=== PATIENT | male | born 1965 | race Caucasian/White ===

== ENCOUNTER → 2017-11-29 09:36 | Outpatient (CLI) | payer OTHER, SELFPAY ==
--- NOTE | 2017-11-29 09:43 | CT_ITS ---
STUDY: CTA CHEST REASON FOR EXAM: Male, 52 years old. Shortness of breath. History of recent travel. RADIATION DOSAGE (If Supplied By Facility): CTDIvol = ( 30.02 ) mGy, DLP = ( 704.66 ) mGycm TECHNIQUE: The examination was performed with the intravenous administration of 100ML ml of Isovue 370 contrast material. Post-processing of the angiographic images was performed, with multiplanar reformation and 3D reconstruction. Individualized dose optimization techniques were used for this CT. COMPARISON: None. FINDINGS: Normal enhancement of the main pulmonary artery and right and left pulmonary arteries. Normal enhancement of the bilateral peripheral pulmonary arteries. There is no demonstrated pulmonary embolism. Normal thoracic aorta and visualized great vessels. There is no demonstrated aortic dissection. There are calcifications of the coronary arteries. Calcification of the LAD. There are visualized mediastinal lymph nodes, which are within normal size limits, and with normal morphology. Normal hilar regions. Normal visualized trachea and bronchi. The lungs are well expanded. Mild increased linear markings in the anterior superior aspect of the right upper lobe suggestive of underlying atelectasis and/or scarring. Follow-up is recommended. Normal pleura. Normal chest wall structures. There are degenerative changes of thoracic spine. Normal visualized upper abdomen. CT/CTA Chest W/WO Contrast IMPRESSION: Focal increased linear density in the anterior segment of the left upper lobe suggestive of focal scarring. Radiographic follow-up is recommended. Coronary artery calcification. Electronically Signed: Kurt Parra MD at 11:07 EDT Tel [phone], Service support ,
== END ==
PROVIDERS: Family Provider Internal Medicine; PCP Internal Medicine; Visit Provider Internal Medicine
DX: R06.02 Shortness of breath (principal)
CPT/HCPCS: 71275; Q9967

== ENCOUNTER → 2018-06-02 07:48 | Outpatient (CLI) | payer OTHER, SELFPAY ==
--- NOTE | 2018-06-02 07:53 | RDU_ITS ---
Reason For Study: HYPERTENSION Right Renal Artery Left Renal Artery Right renal artery ostium Left renal artery ostium 107.0/26.3 114.0/38.3 RSV/EDV. PSV/EDV. Right renal artery proximal Left renal artery proximal PSV/EDV 113.0/35.6 PSV/EDV. 113.0/29.5 . Right renal artery mid 111.0/32.7 Left renal artery mid 120.0/43.8 PSV/EDV. PSV/EDV . Right renal artery distal Left renal artery distal 105.0/26.4 114.0/33.2 PSV/EDV. PSV/EDV. Right RAR 2.1. Left RAR 2.2. Right Renal Parenchyma Left Renal Parenchyma Upper Pole Medula 25.6/9.6 PSV/EDV. Left upper pole medulla 30.9/12.2 Right upper pole medulla EDR .38 . PSV/EDV . Right upper pole medulla R.I. .62 . Left upper pole medulla EDR .40 . Upper Pete Cortx 18.0/7.2 PSV/EDV. Left upper pole medulla R.I. .60 . Right upper pole cortex EDR .4 . UP Cortex 16.8/7.0 PSV/EDV. Right upper pole cortex R.I. .60 . Left upper pole cortex EDR .42 . Right lower Pole medulla 27.2/10.2 Left upper pole cortex R.I. .58 . PSV/EDV . Left lower Pole medulla 18.0/7.6 Right lower pole medulla EDR .38 . PSV/EDV . Right lower pole medulla R.I. .63 . Left lower pole medulla EDR .42 . Lower Pole Cortex 16.1/6.1 PSV/EDV. Left lower pole medulla R.I. .58 . Right lower pole cortex EDR .38 . Lower Pole Cortx 16.2/6.7 PSV/EDV. Right lower pole cortex R.I. .62 . Left lower pole cortex EDR .41 . Right Renal Hilar Left lower pole cortex R.I. .58 . Right Hilar avg 45.6/14.1 PSV/EDV. Left Renal Hilar Right hilar acceleration time 59 LT Hilar avg 37.3/11.0 PSV/EDV . m/sec. Left hilar acceleration time 44 Right Renal Dimensions m/sec. Right kidney size 11.8 cm . Left Renal Dimensions Right cortical dimension 1.7 cm . Left kidney size 12.4 cm . Left cortical dimension 1.7 cm . Aorta Difficult exam due to body habitus. Midline view not obtained. Aorta mid/distal not visualized. Proximal abdominal aorta peak systolic velocity is 54.1 cm/sec . Interpretation Summary Renal artery velocities are bilaterally normal. Acceleration times are normal bilaterally. Renal- aortic ratios are also bilaterally normal. There is no evidence of hemodynamically significant renal artery stenosis on either side. Renovascular resistance appears to be bilaterally normal . The right cortical dimension is increased. The left cortical dimension is increased. Kidneys appear normal in size bilaterally. Ordering Physician: Lizzy Gold Referring Physician: Lizzy Gold Performed By: Zelda Santiago RVT
== END ==
LOC: CT 07:50 → VL 07:53
PROVIDERS: Family Provider Internal Medicine; PCP Internal Medicine; Referring Provider Internal Medicine; Visit Provider Internal Medicine
DX: I10 Essential (primary) hypertension (principal)
CPT/HCPCS: 93975

== ENCOUNTER → 2018-06-10 07:35 | Outpatient (CLI) | payer OTHER, SELFPAY ==
--- NOTE | 2018-06-10 07:39 | CT_ITS ---
STUDY: CT CHEST WITHOUT CONTRAST REASON FOR EXAM: Male, 52 years old. Follow-up lung nodule. Smoker. RADIATION DOSAGE (If Supplied By Facility): CTDIvol = ( 20.72 ) mGy, DLP = ( 648.92 ) mGycm TECHNIQUE: Transaxial imaging was performed without the administration of intravenous contrast material. Multiplanar coronal and sagittal images were reformatted. Individualized dose optimization techniques were used for this CT. COMPARISON: CTA of the chest, November 29, 2017. FINDINGS: The lungs are well expanded. There is linear scarring with associated focal soft tissue density in the anterior right upper lobe best seen on image is 41 through 58. This is stable and unchanged. There is a 0.9 x 0.6 x 0.5 cm soft tissue nodule in the left upper lobe best seen on image 93. This is also stable. No other mass or infiltrate is seen within the lungs. There is no demonstrated pleural abnormality. Normal heart and pericardium. There are calcifications of the coronary arteries. Multiple small subcentimeter mediastinal lymph nodes, again stable. Normal hilar regions. Normal unenhanced pulmonary arteries. Normal aorta arch and descending thoracic aorta. Stable minimal degenerative changes of the thoracic spine. There is no demonstrated abnormality of the visualized upper abdomen. CT/Chest without Contrast IMPRESSION: No change in findings when compared to November 29, 2017. Electronically Signed: Rusty Monk DO at 17:40 EDT Tel [phone], Service support ,
== END ==
PROVIDERS: Family Provider Internal Medicine; PCP Internal Medicine; Referring Provider Internal Medicine Pulmonary Disease; Visit Provider Internal Medicine Pulmonary Disease
DX: R91.1 Solitary pulmonary nodule (principal)
CPT/HCPCS: 71250

== ENCOUNTER → 2020-05-17 | Outpatient (CLI) | payer OTHER, SELFPAY ==
--- NOTE | 2020-05-17 08:30 | RAD_ITS ---
PROCEDURE: Fluoroscopic guided right shoulder Injection DATE: 05/17/2020 INDICATION: Male, 54 years old. Chronic shoulder pain. PHYSICIAN: Kurt Parra M.D. MEDICATIONS: 12 mg of BETAMETHASONE and 4 cc of 1% LIDOCAINE. 2% lidocaine administered subcutaneously for local anesthesia. ACCESS SITE: Right shoulder. NEEDLE: 22-gauge spinal needle. FLUOROSCOPY TIME (if supplied): (0:42) minutes/seconds FINDINGS: The risks, benefits, and alternatives to the procedure were explained to the patient. The specific risks of bleeding, infection, and neurovascular injury were detailed and accepted. Witnessed informed consent was obtained. A 22-gauge spinal needle was positioned under radiographic fluoroscopic localization. Approximately 2 cc of ISOVUE 300 instilled for localization purposes. Medication was then injected. The patient tolerated the procedure well without any immediate complications. RAD/Inj/Asp Vik Jt Should/Hip/Knee IMPRESSION: 1. Successful fluoroscopic guided right shoulder injection. Electronically Signed: Kurt Parra, at 9:51 EDT , Service support ,
--- NOTE | 2020-05-17 08:40 | RAD_ITS ---
PROCEDURE: Fluoroscopic guided left shoulder Injection DATE: 05/17/2020. INDICATION: Male, 54 years old. Chronic left shoulder pain. PHYSICIAN: Kurt Parra M.D. MEDICATIONS: 12 mg of BETAMETHASONE and 4 cc of 1% LIDOCAINE. 2% lidocaine administered subcutaneously for local anesthesia. ACCESS SITE: Left shoulder. NEEDLE: 22-gauge spinal needle. FLUOROSCOPY TIME (if supplied): (0:43) minutes/seconds. One image was obtained. FINDINGS: The risks, benefits, and alternatives to the procedure were explained to the patient. The specific risks of bleeding, infection, and neurovascular injury were detailed and accepted. Witnessed informed consent was obtained. A 22-gauge spinal needle was positioned under radiographic fluoroscopic localization. Approximately 2 cc of ISOVUE-300 instilled for localization purposes. Medication was then injected. The patient tolerated the procedure well without any immediate complications. RAD/Inj/Asp Vik Jt Should/Hip/Knee IMPRESSION: 1. Successful fluoroscopic guided left shoulder injection. Electronically Signed: Kurt Parra, at 9:50 EDT , Service support ,
== END | disposition home or self-care (01) ==
LOC: RAD 08:03
PROVIDERS: PCP Internal Medicine; Referring Provider Specialist; Visit Provider Specialist
DX: M19.011 Primary osteoarthritis, right shoulder (principal)
CPT/HCPCS: 20610; 77002; Q9967; J0702

== ENCOUNTER → 2020-07-27 16:36 | Outpatient (CLI) | payer OTHER, SELFPAY ==
--- NOTE | 2020-07-27 16:45 | RAD_ITS ---
STUDY: X-RAY - LUMBAR SPINE REASON FOR EXAM: Male, 54 years old. BACK PAIN FOR YEARS THAT RADIATES TO LEFT HIP. TECHNIQUE: 3 view(s) of the lumbar spine were obtained. COMPARISON: None FINDINGS: Normal lumbar lordosis. There is no substantial scoliosis. There is a normal alignment of the vertebrae. There is multilevel endplate spondylosis of the lumbar vertebrae. There is multi-level degenerative disc disease with multi-level disc space narrowing. The soft tissue structures are unremarkable. RAD/Lumbar Spine 2 or 3 Views IMPRESSION: Degenerative changes of the spine, as detailed above. Electronically Signed: Deja Norwood, at 3:10 EST Tel , Service support ,
== END ==
PROVIDERS: PCP Internal Medicine; Referring Provider Anesthesiology Pain Medicine; Visit Provider Anesthesiology Pain Medicine
DX: M54.5 Low back pain (principal)
CPT/HCPCS: 72100

== ENCOUNTER → 2021-05-29 17:41 | Outpatient (CLI) | payer OTHER, SELFPAY ==
--- NOTE | 2021-05-29 17:58 | CT_ITS ---
STUDY: LOW DOSE CT LUNG CANCER SCREENING REASON FOR EXAM: Male, 55 years old. SMOKER RADIATION DOSAGE (If Supplied By Facility): CTDIvol = ( 3.18 ) mGy, DLP = ( 115.57 ) mGycm TECHNIQUE: No contrast was administered. Low dose technique was utilized (average mAS-38 and kVp 120). 1.25 mm axial source images with a slice interval of 1.25-mm were reconstructed in lung windows. 2.5 mm axial source images with a slice interval of 2.5-mm were reconstructed in lung windows. 5.0 mm axial source images with a slice interval of 5.0-mm were reconstructed in soft tissue windows. Nodule measured using lung windows on PACS and/or independent workstation with automated measurement of minimum and maximum diameter. Nodule measurement reported as average diameter rounded to the nearest whole number. Growth is defined as an increase ins size of greater than 1.5 mm. COMPARISON: None. NODULES: Reticulonodular density of the anterior right upper lobe on image 67 of series 2 is stable. Round, smoothly marginated nodule in the anterior left upper lobe measuring 9 mm on image 110 of series 2 and image 55 of series 602 is new since the prior CT. Adjacent vascular structures are noted. Emphysema: Not present Endobronchial lesion: None Aorta: Normal caliber Coronary arteries: Moderate atherosclerosis. Heart: Normal size Pulmonary artery: Unremarkable for unopacified technique. Mediastinal nodes: No significant adenopathy. Other chest and abdominal findings: None CT/Low Dose CT Lung Screening IMPRESSION: ACR Lung CT Screening Reporting T Data System (Lung-RADS) score: 4B - Very Suspicious. New 9 mm noncalcified nodule in the anterior left upper lobe. Recommend chest CT with contrast, PET/CT and/or tissue sampling depending on the probability of malignancy and comorbidities. PET/CT may be used when there is a >=8 mm solid component. For new large nodules that develop on an annual repeat screening CT, a 1 month LDCT may be recommended to address potentially infectious or inflammatory conditions. IMPORTANT NOTES FOR USE: ACR Lung-RADS Version 1.1 Assessment Categories Release Date: 2018 Category: Coded 0-4 bases on nodule(s) with highest degree of suspicion. Negative screen is defined as categories 1 and 2; a positive screen is defined as categories 3 and 4. Category 3 and 4A nodules that are unchanged on interval CT should be coded as category 2, and individuals returned to screening in 12 months. Category 4X: Category 3 or 4 nodules with additional imaging findings that increase the suspicion of lung cancer, such as spiculation, GGN that doubles in size in 1 year, enlarged lymph notes, etc. Category Modifiers: S (significant finding unrelated to lung cancer) Electronically Signed: Mason Samson MD ([place]) at 8:25 EDT , Service support ,
== END ==
PROVIDERS: PCP Internal Medicine; Visit Provider Internal Medicine
DX: Z12.2 Encounter for screening for malignant neoplasm of respiratory organs (principal); F17.200 Nicotine dependence, unspecified, uncomplicated
CPT/HCPCS: 71271

== ENCOUNTER → 2021-06-07 17:32 | Outpatient (CLI) | payer OTHER, SELFPAY ==
--- NOTE | 2021-06-07 17:37 | CT_ITS ---
STUDY: CT CHEST WITH CONTRAST REASON FOR EXAM: Male, 55 years old. NEW LUNG NODULE. Shortness of breath with exertion. RADIATION DOSAGE (If Supplied By Facility): CTDIvol = ( 18.39 ) mGy, DLP = ( 733.32 ) mGycm TECHNIQUE: Transaxial imaging was performed following intravenous administration of IV 100mL Isovue-370. Multiplanar coronal and sagittal images were reformatted. Individualized dose optimization techniques were used for this CT. COMPARISON: Comparison is made with prior study 05/29/2021. FINDINGS: Stable reticular nodular density in the anterior aspect of the right upper lobe medially as seen on axial image #28. This is unchanged. Stable 9 mm well-defined nodule in the anterior aspect of the left upper lobe as seen on axial image #52. There is no demonstrated pleural abnormality. There are calcifications of the coronary arteries. There are multiple small lymph nodes within the mediastinum, which are normal in size and morphology most compatible with reactive lymph hyperplasia. Normal hilar regions. Normal enhanced pulmonary arteries. Normal aorta arch and descending thoracic aorta. There are multi-level degenerative changes of the thoracic spine. Diffuse fatty infiltration of the liver. CT/Chest WITH Contrast IMPRESSION: Stable examination. Electronically Signed: Kurt Parra MD at 8:40 EDT , Service support ,
[2021-06-07 17:45] LABS: CREATININE FINGERSTICK 1.1 mg/dL (0.70-1.30); EGFR FINGERSTICK > 60.0000 mL/min (>60)
== END ==
PROVIDERS: PCP Internal Medicine; Referring Provider Internal Medicine; Visit Provider Internal Medicine
DX: R93.89 Abnormal findings on diagnostic imaging of other specified body structures (principal)
CPT/HCPCS: 71260; Q9967

== ENCOUNTER → 2021-08-16 06:37 | Outpatient (CLI) | payer OTHER, SELFPAY ==
--- NOTE | 2021-08-16 06:43 | MRI_ITS ---
STUDY: MRI LEFT SHOULDER REASON FOR EXAM: Left shoulder pain, weakness and limited range of motion, no specific injury. TECHNIQUE: Standardized fat and water weighted pulse sequences were obtained in all 3 orthogonal planes. COMPARISON: None. FINDINGS: There is supraspinatus and infraspinatus tendinosis (T2 coronal images 8-12) without discrete tendon tear. There is subscapularis tendinosis (proton-density axial image 13, 14) without discrete tendon tear. Normal teres minor tendon. Normal supraspinatus muscle. There is mild atrophy with mild partial fat replacement of the distal infraspinatus muscle (T2 axial images 6, 7). Normal subscapularis muscle. There is atrophy with fat replacement of the teres minor muscle (T2 sagittal images 1-9). There is glenohumeral arthrosis with marginal osteophytes and humeral head, mild subchondral cystic change of the posterior medial humeral head and chondral thinning (T2 coronal images 9-11). Normal humeral head and visualized proximal humerus. Normal intracapsular long biceps tendon. There is fluid in the bicipital tendon sheath (proton-density axial images 14-18) suggestive of mild bicipital tenosynovitis. There is diffuse tear/degeneration of the labrum with a paralabral cyst in the suprascapular notch (T2 sagittal image 2) measuring 1.1 cm in transverse dimension and a lobulated paralabral cyst at the inferior aspect of the glenoid (T2 sagittal images 5-7) measuring 1.8 cm in mediolateral dimension. Normal capsulo- ligamentous complex. There is acromioclavicular arthrosis with hypertrophic changes effacing subacromial fat (T2 sagittal images 7, 8). There is a Type I morphology (flat undersurface), with a neutral orientation. There is a small volume of subacromial-subdeltoid bursal fluid (T2 coronal images 7, 8). Normal visualized coracohumeral and coracoacromial ligaments. Normal deltoid muscle. Normal trapezius muscle. MRI/Upper Ext Joint Only(Routine) IMPRESSION: Supraspinatus, infraspinatus and subscapularis tendinosis without demonstrated rotator cuff tear. Atrophy of the teres minor muscle and mild atrophy of the infraspinatus muscle. Glenohumeral arthrosis with tear/degeneration of the labrum with paralabral cysts. Mild bicipital tenosynovitis. Acromioclavicular arthrosis. Mild subacromial-subdeltoid bursitis. Electronically Signed: Kobe Redmond MD at 8:27 EST Tel , Service support ,
== END ==
PROVIDERS: PCP Internal Medicine; Referring Provider Specialist; Visit Provider Specialist
DX: M25.512 Pain in left shoulder (principal); R53.1 Weakness
CPT/HCPCS: 73221

== ENCOUNTER 2021-10-12 17:40 | Outpatient (RCR) | payer OTHER, SELFPAY ==
--- NOTE | 2021-10-12 18:46 | HP.PTEVAL ---
Patient's Visit Information ORION RIVERA is a 56 year old M referred to Physical Therapy by Dr. Elver Vickers MD with a diagnosis of L shoulder OA. Date of Evaluation: 10/12/21 Physical Therapist: Blaine Simpson, PT, ATC - Visit Plan Frequency: 1x/Week Duration: 2 Weeks Plan: Issue and instruct pt on HEP of L rotator cuff strengthening and scap stab ex's - Subjective Pt reports he has had L shoulder pain for years. Pt reports he has a grandson now that he really wants to be able to play with, and has began to notice that he cant lift his L arm up over his head. Pt reports he has had cortisone injections in the past which have not been successful. 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 Pt is R hand dominant. 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 Pt reports his doctor wants him to lose weight first, and then he may get scheduled for a partial shoulder replacement. Pt notes he has had a MRI on his shoulder which did reveal fraying of the rotator cuff. Pt reports his greatest limitation is overhead lifting and most IADL's. Pt notes sleep difficulty secondary to pain. Pt notes L shoulder pain ranges from 5-8/10 - Pain L shoulder Pain Intensity (Out of 10): 5 Pain Intensity Range: 8 - Objective Neuro: B UE sensation is WNL to light touch. B bicepital reflex= 2/3. ROM: R shoulder flex= 150, abd= 120, ER= 20; L shoulder flex= 80, abd= 80, ER= 20. MMT: L shoulder is grossly 4-/5 and painful with all testing. Special tests: pos empty can - Balance/Special Test Scores Quick DASH Score: 43.1800 - Goals Goal 1:: I with HEP Goal Time Frame: 1 Week - Rehabilitation Potential Physical Therapy Diagnosis: Pt has L shoulder weakness, limited ROM, and pain secondary to L shoulder OA Rehabilitation Potential: Good - Anticipated Interventions Thank you for the opportunity to evaluate your patient. For Medicare and Medicare HMO plans, please review the plan of care and approve it. It will need to be FAXED BACK to us at [phone] for Medicare purposes. For Medicare only, by signing this I certify the plan of care. Please let me know if there are questions or concerns regarding this plan of care. Physician Signature: Date:
--- NOTE | 2022-02-07 12:27 | HP.PT.NRP ---
ORION RIVERA was seen in my office for initial evaluation on 10/12/21. The following Plan of Care was established for this patient: Initial Frequency: 1x/Week Initial Duration: 2 Weeks This patient was last seen in our office . Pertinent comments regarding their Physical therapy will appear below: Pt was evaluated for L shoulder pain on the date of 10/12/21. Pt has not returned since that date and is discontinued at this time At this point I will be discontinuing this patient from physical therapy. I would be happy to see this patient again in the future if found appropriate by the physician. Thank you! Baline Simpson, PT, ATC Balance/Gait/Functional tests - Balance/Special Test Scores Quick DASH Score: 43.1800
== END 2021-10-12 19:00 | disposition home or self-care (01) ==
LOC: PT 17:40
PROVIDERS: PCP Internal Medicine; Referring Provider Specialist; Visit Provider Specialist
DX: M19.012 Primary osteoarthritis, left shoulder (principal); E66.8 Other obesity
CPT/HCPCS: 97161

== ENCOUNTER → 2022-02-01 | Outpatient (CLI) | payer BC, SELFPAY ==
--- NOTE | 2022-02-01 09:05 | ART_ITS ---
Reason For Study: PVD Procedure A bilateral lower extremity continuous wave Doppler with analog waveform analysis,segmental pressures,and ankle brachial indexes with exercise. No LUE BP due to recent shoulder Sx. Left Segmental Pressures Left posterior tibial artery = 190mmHg. Left dorsalis pedis artery = 181mmHg. Left digit = 116 mmHg. The left dorsalis pedis waveforms are triphasic. The left posterior tibial artery waveforms are triphasic. Right Segmental Pressures Right brachial= 157mmHg. Right posterior tibial artery = 179mmHg. Right dorsalis pedis artery = 180mmHg. Right digit = 120 mmHg. The right dorsalis pedis waveforms are triphasic. The right posterior tibial artery waveforms are triphasic. Indices The right ankle brachial index by the dorsalis pedis is 1.15. The right ankle brachial index by the posterior tibial artery is 1.14. The right digital-brachial index is .76. The right post exercise ankle brachial index is 1.19. The left ankle brachial index by the dorsalis pedis is 1.15. The left ankle brachial index by the posterior tibial artery is 1.21. The left digital-brachial index is .74. The left post exercise ankle brachial index is 1.34. VL/Lower Ext Art Exam w/ Exercise Interpretation Summary Triphasic Doppler waveforms are noted at ankle level bilaterally. Pulse-volume recordings appear satisfactory at all levels bilaterally. Resting ankle-brachial indices are norm al bilaterally. Digital-brachial indices are normal bilaterally. The patient was ambulated for 5 minutes, following which ankle pressures augmented bilaterally, a normal physiological response. There is no evidence of significant arterial occlusive disease in the lower ext remities bilaterally. Ordering Physician: Lizzy Gold Referring Physician: Lizzy Gold Performed By: Pablo Sanchez, RVT
== END | disposition home or self-care (01) ==
PROVIDERS: PCP Internal Medicine; Referring Provider Internal Medicine; Visit Provider Internal Medicine
DX: I73.9 Peripheral vascular disease, unspecified (principal)
CPT/HCPCS: 93924

== ENCOUNTER 2023-01-25 08:25 | Emergency (ER) | payer BC, SELFPAY ==
[2023-01-25] VITALS (7 sets, daily range): BP systolic 137–199; BP diastolic 79–120; PULSE 66–86; RESP 12–40; TEMP 36.2; O2SAT 93–97; BMI 46.3
--- NOTE | 2023-01-25 08:29 | ED.VIS.DYS ---
HPI History of Present Illness Chief Complaint: Shortness of Breath Informant: patient and spouse/S.O. Onset/Context/Timing Onset: Days Context: sudden Timing: Continuous and Waxes and wanes Quality: Positive for Dyspnea on exertion and Wheezing; Negative for Orthopnea or PND Current Severity: Mild Maximum Severity: Severe Worsened by: Nothing (Walking from the parking lot to the entrance. He states he had to stop every 20 feet) Relieved by: Nothing Associated Symptoms cough, rhinorrhea, sore throat and yellow sputum; Negative for post nasal drip, ear pain, fever, subjective, chills, sweats, clear sputum or white sputum Chest Pain: Positive for None Narrative Narrative: Patient is a 57-year-old male with history of type 2 diabetes, hypertension who presents with shortness of breath that started earlier this week. He was prescribed prednisone on Saturday. He took 40 mg on Saturday and . He took 20 mg prior to arrival today. He denies fever or chills. Denies headache. Does endorse rhinorrhea, congestion and sore throat. His cough is productive of yellow-colored sputum. He states he quit smoking 2 days ago. He denies history of coronary disease. He denies leg pain, swelling discoloration. He has no history of VTE. Patient has no symptoms of claudication. Patient denies history of asthma or COPD. Patient denies GI symptoms. He denies symptoms. He denies neurologic symptoms PE Risk Factors: Negative for Cancer, OCP + Smoking + > 35, Prior DVT or PE, Recent immobilization, Recent surgery or Recent travel Prior similar symptoms: No Recent Illness/Hospitalization: Yes (Seen by PCP earlier this week) [facility] Medical History Diabetes HTN (hypertension) Home Medications cefdinir 300 mg capsule 300 mg PO BID 08/30/17 [History Last Taken Unknown] hydrochlorothiazide 25 mg tablet 25 mg PO QDAY 08/30/17 [History Last Taken Unknown] losartan 100 mg tablet (Cozaar) 100 mg PO QDAY 08/30/17 [History Last Taken Unknown] metformin 500 mg tablet 500 mg PO BID 08/30/17 [History Last Taken Unknown] nebivolol 10 mg tablet (Bystolic) 10 mg PO QDAY 08/30/17 [History Last Taken Unknown] albuterol sulfate 90 mcg/actuation aerosol inhaler (Ventolin HFA) 2 puff inhalation Q4H PRN PRN Wheezing ##1 01/25/23 [Rx Last Taken Unknown] amoxicillin 875 mg-potassium clavulanate 125 mg tablet 875 mg PO Q12H #14 TABLETS 01/25/23 [Rx Last Taken Unknown] azithromycin 250 mg tablet 250 mg PO DAILY #4 TABLETS 01/25/23 [Rx Last Taken Unknown] inhalational spacing device (Aerochamber MV spacer) #1 ea 01/25/23 [Rx Last Taken Unknown] prednisone 10 mg tablet 10 mg PO UD #33 tabs 01/25/23 [Rx Last Taken Unknown] Allergy/AdvReac Type Severity Reaction Status Date / Time lisinopril AdvReac Mild Unknown Verified 01/25/23 08:27 Family History Mother Breast cancer Grandmother Diabetes Surgical History (Updated 01/25/23 @ 08:[address] Jose Luis Sharma MD) History of carpal tunnel repair History of colonoscopy History of esophagogastroduodenoscopy Social History (Updated 01/25/23 @ 08:[address] Jose Luis Sharma MD) household members: spouse Smoking Status: Former smoker alcohol intake: current alcohol intake frequency: a few times a month ROS ROS ED Constitutional Constitutional ED: Reports sweats; Denies chills, fever(s) or weight loss Eyes Eyes: Denies blurry vision, change in vision or diplopia ENT ENT ED: Reports rhinorrhea and sore throat; Denies ear pain Cardiovascular Cardiovascular: Denies chest pain, orthopnea, palpitations, paroxysmal nocturnal dyspnea or racing heartbeat Respiratory/Chest Respiratory/Chest: Reports cough, dyspnea, dyspnea on exertion and sputum; Denies orthopnea or paroxysmal nocturnal dyspnea Gastrointestinal Gastrointestinal: Denies abdominal pain, nausea or vomiting Genitourinary Genitourinary ED: Denies dysuria, hematuria or urinary frequency Musculoskeletal Musculoskeletal: Denies arthralgias, back pain, myalgias or neck pain Integumentary Denies rash Neurologic Neurologic: Denies headache(s) Psychiatric Psychiatric: Denies anxiety or depression Endocrine Endocrinology: Reports other Details: Last A1c was 6.3. Prior A1c was 6.1. ; Denies cold intolerance, heat intolerance, polydipsia or polyuria EXAM Physical Exam Const Vital Signs: 01/25/23 08:26 01/25/23 08:32 01/25/23 09:56 Temperature 97.2 F L Temperature Source Temporal Pulse Rate 71 83 Respiratory Rate 40 H 12 Respiratory Effort Short of Breath Labored Respiratory Pattern Blood Pressure 188/120 H 160/82 H Blood Pressure Mean 142 108 Pulse Ox 95 94 Oxygen Delivery Method Room Air Room Air Room Air 01/25/23 10:05 01/25/23 08:52 01/25/23 10:36 Temperature Temperature Source Pulse Rate 66 73 80 Respiratory Rate 14 18 23 H Respiratory Effort Respiratory Pattern Normal Blood Pressure 199/90 H 137/84 H Blood Pressure Mean 126 101 Pulse Ox 97 93 Oxygen Delivery Method Room Air Room Air Blood pressure is elevated. Positive well nourished, well developed and obese Constitutional Narrative: Patient is tachypneic with use of accessory muscles. There are no retractions. General Appearance ED: well developed; Negative for NAD or pallor Nutritional Appearance: obese HEENT Reports dry mucous membranes HEENT Narrative: Posterior pharynx is normal. Uvula is midline. Head is atraumatic normocephalic. Ears are normal. Mouth ED: Yes dry mucous membranes Mouth: dry mucous membranes Eyes PERRL and EOMs intact bilaterally General Eye ED: Negative for pale conjunctiva or scleral icterus Neck no lymphadenopathy, supple, no meningeal signs and no JVD Resp No normal respiratory effort and No clear to auscultation bilaterally Resp Narrative: Expiratory phase is prolonged. There is use of accessory muscles. Auscultation: wheezes expiratory wheezes, scattered wheezes and throughout and diminished lung sounds diffuse Cardio regular rate, regular rhythm, S1 normal heart sound, S2 normal heart sound and no murmurs GI non-tender, non-distended and no masses Auscultation: normoactive bowel sounds Palpation: soft Back/Spine no CVA tenderness Extremity Extremity Narrative: Varicosities noted. Slight edema bilaterally. There is no asymmetry, discoloration, leg vein distention, palpable cords tenderness on the distribution deep venous system. Neuro oriented x3, CN's II-XII intact bilaterally and no sensory deficits noted Barbara Coma Scale: document GCS findings Spontaneous Obeys Commands Oriented 15 Psych mental status grossly normal Skin no wounds and skin turgor normal General Skin Exam: Negative for jaundice or pallor MDM MDM MDM Narrative Medical decision making narrative: Patient is in respiratory distress. Patient's symptoms are consistent with infectious process. His history is not consistent with cardiac disease and there is no concern for PE even though he is not PERC negative. Patient's prior chest x-ray reveals 2 nodules and he is scheduled for outpatient CT to investigate these 2 nodules. Patient was treated with DuoNeb, albuterol. He did not receive prednisone for the following reasons 1 he is diabetic and he is presently on prednisone. If he does not improve we will give additional burst. EKG was obtained to rule out cardiac ischemia since he is diabetic and has history of hypertension. History & Record Review Additional record(s) reviewed:: Prior outpatient record (Arterial studies of lower extremity revealed a normal brachial ankle index and triphasic flow. This performed January 2022. Patient had other outpatient studies that were reviewed) and Prior labs (Only laboratory study available for review was creatinine and creatinine clearance which were normal.) Lab Data Attestation: I reviewed the patient's lab results. Lab results narrative: CBC is unremarkable. Labs: Laboratory Results - last 24 hr 01/25/23 01/25/23 01/25/23 08:35 08:35 08:35 WBC 7.7 RBC 5.58 Hgb 16.2 Hct 49.3 MCV 88.4 MCH 29.0 MCHC 32.9 RDW Std Deviation 45.6 H RDW Coeff of [place] 14.2 Plt Count 179 MPV 10.2 Immature Gran % (Auto) 0.400 Neut % (Auto) 61.1 Lymph % (Auto) 26.4 [place] % (Auto) 10.7 H Eos % (Auto) 0.9 Baso % (Auto) 0.5 Absolute Neuts (auto) 4.7 Absolute Lymphs (auto) 2.02 Nucleated RBC % 0 Sodium 138 Potassium 4.2 Chloride 103 Carbon Dioxide 31.0 Anion Gap 4 L BUN 15 Creatinine 1.08 Estim Creat Clear Calc 79.80 Est GFR (MDRD) Af Amer 91 Est GFR (MDRD) Non-Af 75 BUN/Creatinine Ratio 13.9 Glucose 109 H Lactic Acid 0.9 Calcium 9.2 Radiography Chest X-Ray - ED: 2 View and Read by ED Physician (In the family reviewed interpreted by me as negative at 1038. Cardiac silhouette size unremarkable. Perihilar region unremarkable. Lung parenchyma is unremarkable. Osseous trucks is unremarkable. There is no effusion noted.) Diagnostic Testing: Clinical Impression(s) from Imaging Studies Chest X-Ray 01/25/23 10:20 IMPRESSION: Mild increased markings in the right middle lobe. Early infiltrate should be ruled out. Electronically Signed: Kurt Parra MD at 10:37 EDT , Rhythm Strip Rhythm Strip: Sinus Rhythm (Complex is wide) Rate: 70 Ectopy: None EKG Initial EKG: Attestation: I personally reviewed and interpreted this EKG as follows: Interpretation: Sinus Rhythm (Rate is 70 with prolonged QRS duration consistent with right bundle branch block. MN interval is 107 6 ms per cures duration 138 ms. QT duration is 422 ms. Lynn is normal. There is no acute ischemic changes noted.) Treatment and Re-Evaluation :: Patient was reassessed at 0905. Patient's still wheezing and wheezing is much more pronounced. He is moving more air. With forced expiration patient does have wheezing noted. Will place on tapering dose of prednisone. He received 60 mg in the emergency department and was treated with Augmentin and azithromycin. Since his curb 65 score is 0 with a 0.6% 30-day mortality rate outpatient therapy is acceptable. Patient was also prescribed a albuterol metered-dose inhaler with spacer. Patient has used inhaler in the past. Patient was informed he was prescribed a spacer because he will receive 2-3 times more medication with the spacer versus without the spacer. Discharge Plan Triage Chief Complaint: Shortness of Breath ED Provider: Jose Luis Sharma Dx/Rx/DC Orders Clinical Impression: Right middle lobe pneumonia, Acute bronchospasm, Type 2 diabetes mellitus, History of hypertension Instructions: ED Pneumonia (Adult) Prescriptions: New azithromycin [azithromycin] 250 mg tablet 250 mg PO DAILY Qty: 4 0RF albuterol sulfate [Ventolin HFA] 90 mcg/actuation HFA aerosol inhaler 2 puff inhalation Q4H PRN PRN (Reason: Wheezing) Qty: 1 0RF amoxicillin-pot clavulanate [amoxicillin-pot clavulanate] 875-125 mg tablet 875 mg PO Q12H Qty: 14 0RF (DME) Aerochamber MV Spacer See Rx Instructions .Route Qty: 1 0RF Rx Instructions: As directed prednisone 10 mg tablet 10 mg PO UD Qty: 33 0RF Rx Instructions: Take 4 tablets daily for 3 days, then 3 daily for 3 days, then 2 daily for 3 days, then 1 a day for 3 days then 1 QOD for 3 doses. No Action cefdinir 300 mg capsule 300 mg PO BID hydrochlorothiazide 25 mg tablet 25 mg PO QDAY losartan [Cozaar] 100 mg tablet 100 mg PO QDAY nebivolol [Bystolic] 10 mg tablet 10 mg PO QDAY metformin 500 mg tablet 500 mg PO BID Primary Care Provider: Lizzy Gold Referrals: Lizzy Gold DO [Primary Care Provider] - 3-5 Days Disposition Disposition: Home, Self Care
--- NOTE | 2023-01-25 08:34 | EKG12_ITS ---
Test Reason : SOB Blood Pressure : / mmHG Vent. Rate : 070 BPM Atrial Rate : 070 BPM P-R Int : 176 ms QRS Dur : 138 ms QT Int : 422 ms P-R-T Axes : 036 -15 027 degrees QTc Int : 455 ms Normal sinus rhythm Right bundle branch block Abnormal ECG Confirmed by ROBEL DOWNING, SUSI ([id number]), senior technical editor HARRISON KEARNS ([id number]) on 01/29/2023 8:43:36 AM Referred By: BRANDON Confirmed By:SUSI HUSTON MD
[2023-01-25] MEDS: Ipratropium/Albuterol Sulfate 3 ML AMPUL.NEB INHALATION (08:41)
[2023-01-25 08:49] LABS: Absolute Lymphocyte Count 2.02 X10^3/uL (0.83-4.51); Absolute Neutrophil Count 4.7 X10^3/uL (2.0-7.7); Basophil# 0.04 X10^3/uL; Basophil% 0.5 % (0-1); Eosinophil# 0.07 X10^3/uL; Eosinophils% 0.9 % (0-5); Hematocrit 49.3 % (40-54); Hemoglobin 16.2 g/dL (13.0-16.5); Lymphocyte # 2.02 X10^3/ul (0.83-4.51); Lymphocyte % 26.4 % (19-41); Mean Corp Hgb Conc 32.9 g/dL (32-36); Mean Corpuscular Volume 88.4 fL (80-94); Mean Platelet Vol. 10.2 fl (6.2-12.0); Monocyte# 0.82 X10^3/uL; Monocyte% 10.7 % (0-10); NRBC Flagged by Analyzer 0 % (0-5); Neutrophil # 4.67 X10^3/uL (2.7-7.7); Neutrophil % 61.1 % (47-70); Platelet Count 179 K/mm3 (150-450); RBC Distribution Width CV 14.2 % (11.6-14.6); RBC Distribution Width SD 45.6 fl (35.1-43.9); Red Blood Count 5.58 M/mm3 (4.6-6.2); White Blood Count 7.7 K/mm3 (4.4-11.0)
[2023-01-25] MEDS: Albuterol 2.5 MG/3 ML VIAL.NEB. INHALATION ×3 (08:49)
[2023-01-25 08:57] LABS: Anion Gap 4 (5-15); BUN 15 mg/dL (7-18); BUN/Creat Ratio 13.9 RATIO (10-20); Calcium,Total 9.2 mg/dL (8.5-10.1); Chloride 103 mmol/L (98-107); Creatinine, Serum 1.08 mg/dL (0.70-1.30); EST Glomerular Filtration Rate 75 mL/min (>60); Est Glom Filt Rate - Afr Amer 91 mL/min (>60); Glucose 109 mg/dL (74-106); Potassium 4.2 mmol/L (3.5-5.1); Sodium Level 138 mmol/L (136-145)
[2023-01-25 09:10] LABS: Lactic Acid 0.9 mmol/L (0.4-1.9)
--- NOTE | 2023-01-25 10:20 | RAD_ITS ---
STUDY: X-RAY CHEST REASON FOR EXAM: Male, 57 years old. Productive cough, wheezing, respiratory infectious TECHNIQUE: PA and lateral views of the chest. COMPARISON: None. FINDINGS: EKG electrodes are seen. Focal area of increased markings in the right middle lobe. Early infiltrate should be ruled out. There is no demonstrated pleural abnormality. Normal size heart. Normal mediastinum and [place]. Normal visualized pulmonary arteries. There is atherosclerotic tortuosity of the aortic arch and descending thoracic aorta. There are diffuse degenerative changes of the visualized thoracic spine. Status post left reverse shoulder replacement. There is no demonstrated abnormality of the visualized soft tissue structures of the upper abdomen. RAD/Chest PA and Lateral IMPRESSION: Mild increased markings in the right middle lobe. Early infiltrate should be ruled out. Electronically Signed: Kurt Parra MD at 10:37 EDT ,
[2023-01-25] MEDS: predniSONE 20 MG Tablet 60 MG PO (11:22)
[2023-01-25] MEDS: Amox/Clavulanate 875 MG Tablet PO (11:22)
[2023-01-25] MEDS: Azithromycin 250 MG Tablet 500 MG PO (11:22)
== END 2023-01-25 11:27 | disposition home or self-care (01) ==
PROVIDERS: Emergency Provider Emergency Medicine; PCP Internal Medicine; Visit Provider Emergency Medicine
DX: J18.9 Pneumonia, unspecified organism (principal); E11.9 Type 2 diabetes mellitus without complications; Z87.891 Personal history of nicotine dependence; J98.01 Acute bronchospasm; I10 Essential (primary) hypertension; Z79.52 Long term (current) use of systemic steroids; E66.9 Obesity, unspecified
CPT/HCPCS: 71046; 80048; 83605; 85025; 93005; 94640; 99252; 99285; A4216; G0463

== ENCOUNTER → 2023-03-28 | Outpatient (CLI) | payer BC, SELFPAY ==
--- NOTE | 2023-03-28 06:45 | CT_ITS ---
STUDY: LOW DOSE CT LUNG CANCER SCREENING REASON FOR EXAM: Male, 57 years old. SMOKER. The patient smoked 1 pack per day for 22 years. Recent pneumonia and cough. RADIATION DOSAGE (If Supplied By Facility): CTDIvol = ( 4.02 ) mGy, DLP = ( 135.92 ) mGycm TECHNIQUE: No contrast was administered. Low dose technique was utilized (average mAS-38 and kVp 120). 1.25 mm axial source images with a slice interval of 1.25-mm were reconstructed in lung windows. 2.5 mm axial source images with a slice interval of 2.5-mm were reconstructed in lung windows. 5.0 mm axial source images with a slice interval of 5.0-mm were reconstructed in soft tissue windows. COMPARISON: Comparison is made with prior study of June 07, 2021. NODULES: Interval increase in size of the previously seen nodule in the left upper lobe. It presently measures 1.4 cm. This is seen on axial image #109 and coronal image #145. Emphysema: Stable reticular nodular density in the anterior medial aspect of the right upper lobe suggestive of scarring Endobronchial lesion: None Aorta: Mild atherosclerotic plaque formation of the aortic arch. CORONARY ARTERIES: Coronary artery calcification is seen. Heart: Unremarkable. Pulmonary artery: Unremarkable Mediastinal nodes: Small mediastinal lymph nodes. Other chest and abdominal findings: CT/Low Dose CT Lung Screening IMPRESSION: Lung-RADS category 4A - Screening at 3 months with LDCT or evaluation with PET/CT may be used. IMPORTANT NOTES FOR USE: ACR Lung-RADS Version 1.1 Assessment Categories Release Date: 2018 Category: Coded 0-4 bases on nodule(s) with highest degree of suspicion. Negative screen is defined as categories 1 and 2; a positive screen is defined as categories 3 and 4. Category 3 and 4A nodules that are unchanged on interval CT should be coded as category 2, and individuals returned to screening in 12 months. Category 4X: Category 3 or 4 nodules with additional imaging findings that increase the suspicion of lung cancer, such as spiculation, GGN that doubles in size in 1 year, enlarged lymph notes, etc. Category Modifiers: S (significant finding unrelated to lung cancer) Electronically Signed: Kurt Parra MD at 14:28 EDT ,
== END | disposition home or self-care (01) ==
PROVIDERS: PCP Internal Medicine; Referring Provider Internal Medicine; Visit Provider Internal Medicine
DX: Z12.2 Encounter for screening for malignant neoplasm of respiratory organs (principal); F17.210 Nicotine dependence, cigarettes, uncomplicated
CPT/HCPCS: 71271

== ENCOUNTER → 2023-04-05 | Outpatient (CLI) | payer BC, SELFPAY ==
--- NOTE | 2023-04-07 07:04 | PFT ---
INTRODUCTION: The patient is a 57-year-old male who presents for pulmonary function studies secondary to a diagnosis of pulmonary nodule. Respiratory therapy reported good patient effort. Bronchodilators were used during testing. INTERPRETATION: Forced expiration spirometry demonstrates the presence of a mild large airways obstructive ventilatory defect. There was no significant response to aerosolized bronchodilators. Spirograms are of good quality and plateau gradually indicating slow emptying of the lungs. Body plethysmography was performed and revealed a decreased TLC to 5.53 L, 78% of predicted, indicative of a mild restrictive ventilatory impairment. Diffusing capacity by single breath CO was within normal limits. IMPRESSION: Irreversible mild mixed ventilatory defect with preserved diffusing capacity.
== END | disposition home or self-care (01) ==
LOC: PSN 08:08
PROVIDERS: PCP Internal Medicine; Referring Provider Internal Medicine Critical Care Medicine; Visit Provider Nurse Practitioner Family
DX: R91.1 Solitary pulmonary nodule (principal)
CPT/HCPCS: 94060; 94726; 94729

== ENCOUNTER → 2023-05-02 | Outpatient (CLI) | payer BC, SELFPAY ==
--- NOTE | 2023-05-02 08:59 | ECHOD_ITS ---
Reason For Study: Dyspnea/SOB Procedure This was a 2D Doppler, Color Flow transthoracic echocardiogram. Exam performed in department. Left Ventricle Normal LV size. Mild concentric left ventricular hypertrophy. Left ventricular systolic function is normal. The estimated ejection fraction is 60 %. Stage 1 diastolic dysfunction. No regional wall motion abnormalities noted. Right Ventricle Normal RV size. Normal systolic function. Atria Normal left atrium. Normal right atrium. Mitral Valve Normal mitral valve. Tricuspid Valve Normal tricuspid valve. Aortic Valve Trisinus/trileaflet aortic valve. Pulmonic Valve Normal pulmonic valve. Great Vessels Normal aortic root. The pulmonary artery is normal size. Normal inferior vena cava. Pericardium/Pleural No pericardial effusion. MMode/2D Measurements & Calculations LVIDd: 4.8 cm IVSd: 1.3 cm Ao root diam: 3.7 cm LVIDs: 3.0 cm LVPWd: 1.2 cm RVDd: 4.4 cm FS: 37.7 % LAV(MOD-bp): 57.8 ml LVAd ap4: 29.2 cm2 SV(MOD-sp4): 55.0 ml LAV(MOD-bp) Indexed: 22.7 ml/m2 LVLd ap4: 8.5 cm LAV(MOD-sp2): 66.8 ml EDV(MOD-sp4): 83.9 ml LAV(MOD-sp4): 46.5 ml EDV(sp4-el): 85.4 ml LVAs ap4: 15.0 cm2 LVLs ap4: 6.7 cm ESV(MOD-sp4): 29.0 ml ESV(sp4-el): 28.2 ml EF(MOD-sp4): 65.5 % EF(sp4-el): 67.0 % SV(sp4-el): 57.2 ml LA A4 area: 18.2 cm2 LA dimension(2D): 4.1 cm RA A4 area: 16.4 cm2 TAPSE: 2.3 cm Time Measurements MV dec time: 0.31 sec Doppler Measurements & Calculations MV E max gary: 69.1 cm/sec Lat Peak E' Gary: 7.2 cm/sec Med Peak E' Gary: 4.9 cm/sec MV A max gary: 106.4 cm/sec E/E' lat: 9.5 E/E' med: 14.2 MV E/A: 0.65 Ao V2 max: 151.2 cm/sec LV V1 max: 123.7 cm/sec MV dec slope: 229.3 cm/sec2 Ao max P.1 mmHg LV V1 max P.1 mmHg Ao V2 mean: 108.7 cm/sec Ao mean P.4 mmHg Ao V2 VTI: 33.9 cm PA V2 max: 110.4 cm/sec ECHO/Echo Complete Interpretation Summary Normal LV size. Left ventricular systolic function is normal. The estimated ejection fraction is 60 %. Mild concentric left ventricular hypertrophy. Stage 1 diastolic dysfunction. Ordering Physician: Robson Miller Referring Physician: Lizzy Gold Performed By: Neetu Medeiros, ANA, RVT
== END | disposition home or self-care (01) ==
LOC: CT 08:58 → CVS 08:59
PROVIDERS: PCP Internal Medicine; Referring Provider Internal Medicine Critical Care Medicine; Visit Provider Internal Medicine Critical Care Medicine
DX: R06.02 Shortness of breath (principal)
CPT/HCPCS: 93306

== ENCOUNTER → 2023-07-08 | Outpatient (CLI) | payer BC, SELFPAY ==
--- NOTE | 2023-07-08 13:49 | CT_ITS ---
EXAM: CT CHEST WITHOUT INTRAVENOUS CONTRAST CLINICAL INDICATION: Enlarging lung nodule TECHNIQUE: Helically acquired images were obtained of the chest without intravenous contrast. This CT exam was performed using one or more of the following dose reduction techniques: automated exposure control, adjustment of the mA and/or kV according to patient size, and/or use of iterative reconstruction technique. COMPARISON: CT chest, 03/28/2023 FINDINGS: LUNGS AND PLEURAL SPACES: Unchanged 1.2-1.4 cm left upper lobe pulmonary nodule. Minimal scarring in the right upper lobe. No new pulmonary nodule, focal airspace disease, or pleural effusion. HEART: Coronary artery calcifications. Heart size is normal. No pericardial effusion. MEDIASTINUM: No significant abnormality. No mediastinal or hilar adenopathy. Esophagus is unremarkable. No hiatal hernia. THYROID: No significant abnormality. No thyroid lesions. BONES/JOINTS: Left shoulder arthroplasty. No suspicious lytic or blastic abnormality. VASCULATURE: Atherosclerosis of the aorta. LIVER: Low-attenuation throughout the liver suggesting fatty infiltration. CT/Chest without Contrast IMPRESSION: 1. No new pulmonary nodule, focal airspace disease, or pleural effusion. 2. Fatty liver. 3. Unchanged 1.2-1.4 cm left upper lobe pulmonary nodule. Given that this patient is currently undergoing screening, the stability of greater than 3 months indicates that the appropriate scoring is as follows. ACR Lung CT Screening Reporting And Data System (Lung-RADS) score: 2 - Benign Appearance or Behavior. Recommend continued annual screening with a low-dose CT (LDCT) in 12 months. Electronically Signed: Jacky Pete DO at 21:18 EST ,
== END | disposition home or self-care (01) ==
LOC: CT 13:48
PROVIDERS: PCP Internal Medicine; Referring Provider Internal Medicine Critical Care Medicine; Visit Provider Internal Medicine Critical Care Medicine
DX: R91.1 Solitary pulmonary nodule (principal); R06.00 Dyspnea, unspecified
CPT/HCPCS: 71250